=== PATIENT | male | born 1975 ===

== ENCOUNTER 2018-09-13 15:46 | Emergency (ER) | payer OTHER ==
[2018-09-13 15:52] VITALS: BMI 26.8
[2018-09-13] MEDS ORDERED: Sodium Chloride 0.9% 1,000 ML IV ONE ×2 (16:13)
--- NOTE | 2018-09-13 16:20 | C.PDOC ---
History Of Present Illness 43 year old male presents to ED with complaint of hyperglycemia. Patient has had diabetes for the past 20 years and has been off his medications for over a week. Patient's family brought him to the hospital. He is currently on a ventilator. Patient denies weakness, dizziness, and headache. Time Seen by Provider: 09/13/18 16:09 Chief Complaint (Nursing): Dizziness/Lightheaded History/Exam Limitations: no limitations Onset/Duration Of Symptoms: Hrs Current Symptoms Are (Timing): Still Present Seizure Or Post-ictal Symptoms: None Fall Associated With With Symptoms: No Severity: None Past Medical History Reviewed: Historical Data, Nursing Documentation, Vital Signs Vital Signs: Last Vital Signs Temp 97.5 F L 09/13/18 15:51 Pulse 94 H 09/13/18 15:51 Resp 18 09/13/18 15:51 BP 121/79 09/13/18 15:51 Pulse Ox 100 09/13/18 15:51 - Medical History PMH: Diabetes Surgical History: No Surg Hx Family History: States: Unknown Family Hx - Social History Hx Alcohol Use: No Hx Substance Use: No - Immunization History Hx Tetanus Toxoid Vaccination: No Hx Influenza Vaccination: No Hx Pneumococcal Vaccination: No Review Of Systems Constitutional: Negative for: Fever, Chills, Weakness Cardiovascular: Negative for: Chest Pain, Palpitations Respiratory: Negative for: Cough, Shortness of Breath Neurological: Negative for: Weakness, Numbness, Headache, Dizziness Physical Exam - Physical Exam Appears: Well, Non-toxic, No Acute Distress Skin: Normal Color, Warm, Dry Head: Atraumatic, Normacephalic Neck: Normal ROM, Supple Chest: Symmetrical, No Deformity Cardiovascular: Rhythm Regular Respiratory: No Accessory Muscle Use, No Rales, No Rhonchi, No Wheezing Gastrointestinal/Abdominal: Soft, No Tenderness Extremity: Capillary Refill (<2 seconds) Extremity: Bilateral: Atraumatic, Normal Color And Temperature Pulses: Left Radial: Normal, Right Radial: Normal Neurological/Psych: Oriented x3, Normal Speech, Normal Cognition ED Course And Treatment - Laboratory Results Result Diagrams: 09/13/18 16:29 09/13/18 16:29 Lab Interpretation: Abnormal O2 Sat by Pulse Oximetry: 100 Pulse Ox Interpretation: Normal Progress Note: Treated with IVF NSS x2 liters and Insulin 8 Units IV for BS 588. Patient treated with additional 8 units insulin SQ for BS 440. Patient reports he has not taken his DM meds for over 1 week because he is from [place] and visiting someone in hospital. Patient advised to continue current medications and follow up with his PMD. Patient will return home tonight. Patient requesting discharge to home Reassessment Condition: Improved Medical Decision Making Medical Decision Making: Impression: 43 year old with hypoglycemia. Plan: Labs ordered with CBC and UA for patient. Patient given IV fluids. Disposition Counseled Patient/Family Regarding: Studies Performed, Diagnosis, Need For Followup - Disposition Disposition: HOME/ ROUTINE Disposition Time: 18:30 Condition: STABLE Additional Instructions: Follow up with your PMD tomorrow Take all your medication as directed Return to ED if any increase symptoms Instructions: Hyperglycemia, Adult, Blood Glucose Test Forms: [employer] (Urdu) - POA Present On Arrival: None - Clinical Impression Clinical Impression: Hyperglycemia, Non compliance with medical treatment - PA / CALL MANAGER / Resident Statement MD/DO has reviewed & agrees with the documentation as recorded. (Elyssa Ga) - Scribe Statement The provider has reviewed the documentation as recorded by the Scribe (Elyssa Ga) All medical record entries made by the Scribe were at my direction and personally dictated by me. I have reviewed the chart and agree that the record accurately reflects my personal performance of the history, physical exam, medical decision making, and the department course for this patient. I have also personally directed, reviewed, and agree with the discharge instructions and disposition.
[2018-09-13] MEDS ORDERED: Sodium Chloride 0.9% 2,000 ML ONE (16:25)
[2018-09-13 16:33] LABS: BASO % 0.4 % (0.0-2.0); EOS # 0.1 K/uL (0.0-0.7); EOS % 1.6 % (0.0-4.0); HEMOGLOBIN 10.5 g/dL (12.0-18.0); LYMPH # 1.2 K/uL (1.0-4.3); LYMPH % 22.6 % (20.0-40.0); MEAN CELL VOLUME 87.5 fL (80.0-94.0); MEAN CORPUSCULAR HEMOGLOBIN 29.1 pg (27.0-31.0); MEAN CORPUSCULAR HGB CONC 33.2 g/dL (33.0-37.0); MEAN PLATELET VOLUME 9.3 fL (7.2-11.7); MONO # 0.6 K/uL (0.0-0.8); MONO % 10.5 % (0.0-10.0); NEUT # 3.5 K/uL (1.8-7.0); NEUT % 64.9 % (50.0-75.0); NRBC % 0.1 % (0.0-2.0); RBC 3.61 Mil/uL (4.40-5.90); RED CELL DISTRIBUTION WIDTH 12.6 % (11.5-14.5); WHITE BLOOD COUNT 5.4 K/uL (4.8-10.8)
[2018-09-13 16:34] LABS: VENOUS BLOOD GAS BASE EXCESS 0.3 mmol/L (0.0-2.0); VENOUS BLOOD GAS PCO2 45 mmHg (40-60); VENOUS BLOOD GAS PO2 25 mm/Hg (30-55); VENOUS BLOOD PH 7.37 (7.32-7.43)
[2018-09-13 16:49] LABS: ALB/GLOB RATIO 1.2 (1.0-2.1); ALBUMIN 3.6 g/dL (3.5-5.0); CALCIUM 8.1 mg/dl (8.6-10.4)
[2018-09-13] MEDS ORDERED: (Novolin R) Insulin Human Regular 100 units/ml vial IVP ONE (16:49)
[2018-09-13] MEDS ORDERED: (Novolin R) Insulin Human Regular 100 units/ml vial ONE ×2 (17:00→18:09)
[2018-09-13] MEDS ORDERED: (Novolin R) Insulin Human Regular 100 units/ml vial SC ONE (17:57)
[2018-09-13 18:09] VITALS: RESP 20
[2018-09-13 18:38] VITALS: BP 153/94; PULSE 94; TEMP 98
[2018-09-13 18:45] VITALS: O2SAT 100
== END 2018-09-13 18:48 | disposition home or self-care (01) ==
LOC: C.ER 15:46
DX: E11.65 Type 2 diabetes mellitus with hyperglycemia (principal); Z91.19 Patient's noncompliance with other medical treatment and regimen
CPT/HCPCS: 80053; 82803; 82948; 85025; 96361; 96374; 99285; J7030